=== PATIENT | female | born 1960 | race Caucasian/White ===

== ENCOUNTER 2022-12-21 14:28 | Outpatient (CLI) | payer BC | END 2022-12-21 14:29 | disposition critical access hospital (66) | LOC: EMS 14:28 | DX: R00.2 Palpitations (principal); R53.1 Weakness; R42 Dizziness and giddiness; R06.02 Shortness of breath | CPT/HCPCS: A0425; A0429 ==

== ENCOUNTER 2022-12-21 15:02 | Emergency (ER) | payer BC ==
--- NOTE | 2022-12-21 15:19 | ED Physician Documentation ---
PD HPI CHEST PAIN - Stated complaint Stated Complaint: DIZZY/PALPITATIONS - Chief complaint Chief Complaint: Cardiac - History obtained from History obtained from: Patient - Additional information Additional information: 62-year-old woman with history of hypertension, she is on lisinopril/hydrochlorothiazide 20/25 chronically long-term and she was on verapamil twice daily but about 2 months ago she switched her verapamil to daily because she was having some lower blood pressures. About a month ago she had an episode of palpitations. It resolved on its own and she follow-up with her men's and boys' clothing salesperson, Dr. Zacarias in [place], where she lives and she was recommended to get a cardia unit. Today while at rest she had about 20 to 30 minutes episodes of rapid palpitations and lightheadedness. There is no associated chest pain. Resolved prior to EMS arrival and she feels fine now. PD PAST MEDICAL HISTORY - Present Medications Home Medications: Ambulatory Orders Medication Instructions Recorded Confirmed Escitalopram [Lexapro] 10 mg PO DAILY 12/21/22 12/21/22 Ezetimibe [Zetia] 10 mg PO QD 12/21/22 12/21/22 Gabapentin [Neurontin] 1,200 mg PO HS 12/21/22 12/21/22 Letrozole 10 mg PO DAILY 12/21/22 12/21/22 Levothyroxine [Synthroid] 125 mcg PO QDAC 12/21/22 12/21/22 Liothyronine [Cytomel] 5 mcg PO QDAC 12/21/22 12/21/22 Lisinopril/Hydrochlorothiazide 1 each PO DAILY #90 tablet 12/21/22 [Zestoretic 10-12.5 mg Tablet] Lisinopril/Hydrochlorothiazide 1 each PO DAILY 12/21/22 12/21/22 [Zestoretic 20-25 mg Tablet] Ursodiol [Jessica] 1,000 mg PO DAILY 12/21/22 12/21/22 Verapamil ER [Calan SA] 120 mg PO DAILY 12/21/22 12/21/22 - Allergies Allergies/Adverse Reactions: Allergies Allergy/AdvReac Type Severity Reaction Status Date / Time adhesive Allergy Hives Verified 12/21/22 15:26 clindamycin Allergy Unknown Verified 12/21/22 15:26 hydrocodone Allergy Unknown Verified 12/21/22 15:26 Penicillins Allergy Anaphylaxis Verified 12/21/22 15:26 tramadol Allergy Unknown Verified 12/21/22 15:26 PD ED PE NORMAL - Vitals Vital signs reviewed: Yes - General General: Alert and oriented X 3, No acute distress - Cardiac Cardiac: RRR, No murmur - Respiratory Respiratory: No respiratory distress, Clear bilaterally - Abdomen Abdomen: Non tender - Extremities Extremities: No edema, No calf tenderness / cord - Neuro Neuro: Alert and oriented X 3, Normal speech Results - Vitals Vitals: Vital Signs - 24 hr 12/21/22 12/21/22 12/21/22 15:12 16:02 17:01 Temperature 37.1 C Heart Rate 77 68 62 Respiratory 14 19 23 Rate Blood Pressure 156/78 H 136/86 H 132/78 H O2 Saturation 98 99 97 Oxygen O2 Source Room air - EKG (time done) 1509 EKG releavant findings:: EKG personally interpreted by author of this note. Relevant findings are: Rate: Rate (enter#) (84) Rhythm: NSR Cow[place]: Normal Intervals: Normal MD QRS: Normal Ischemia: Normal ST segments - Labs Labs: Laboratory Tests 12/21/22 12/21/22 15:26 15:26 WBC 5.5 RBC 4.77 Hgb 14.5 Hct 43.0 MCV 90.1 MCH 30.4 MCHC 33.7 RDW 12.6 Plt Count 249 MPV 8.9 Neut # (Auto) 3.0 Lymph # (Auto) 1.8 [place] # (Auto) 0.5 Eos # (Auto) 0.2 Baso # (Auto) 0.0 Absolute Nucleated RBC 0.00 Nucleated RBC % 0.0 Sodium 139 Potassium 3.6 Chloride 104 Carbon Dioxide 28 Anion Gap 7.0 BUN 14 Creatinine 0.6 Estimated GFR (MDRD) 101 Glucose 76 Calcium 10.1 Magnesium 1.8 TSH 0.14 L Free T4 Direct 1.25 Free T3 pg/mL 3.66 PD Medical Decision Making - ED course ED course: She is able to show me the tracing from her Kardia unit from earlier in the day which shows a narrow complex rapid SVT with a rate a little over 200. 61-year-old woman with a resolved SVT based on her Kardia device. CBC and BMP unremarkable. TSH low but free T4 and T3 unremarkable. Symptoms likely unmasked by going to half of her prior dose of verapamil a couple of months ago. She was on 120 mg twice a day, and couple of months ago when 220 mg once a day because of some low blood pressures. She is also on lisinopril/HCTZ 20/25 daily. I did discuss her case by phone with Dr. Ezekiel Gates, men's and boys' clothing salesperson in [facility] who agreed that she should probably go back to the twice a day dosing of verapamil and we will half the dose of her other antihypertensive. Departure - Departure Disposition: 01 Home, Self Care Clinical Impression: SVT (supraventricular tachycardia) Condition: Good Record reviewed to determine appropriate education?: Yes Instructions: ED Tachycardia Pat PSVT Prescriptions: Lisinopril/Hydrochlorothiazide [Zestoretic 10-12.5 mg Tablet] 1 each PO DAILY #90 tablet Comments: Go back to the twice a day dosing of verapamil starting tomorrow. I sent the prescription for the half dose of lisinopril/HCTZ to the [facility] in [place]. Return if worse. Follow-up with your men's and boys' clothing salesperson on return home. Forms: PCP List
[2022-12-21 15:31] LABS: BASOPHILS % (AUTO) 0.5 %; EOSINOPHILS # (AUTO) 0.2 10^3/uL (0.0-0.7); EOSINOPHILS % (AUTO) 2.7 %; HGB - HEMOGLOBIN 14.5 g/dL (12.0-16.0); LYMPHOCYTES # (AUTO) 1.8 10^3/uL (1.5-3.5); LYMPHOCYTES % (AUTO) 33.2 %; MEAN CORPUSCULAR HEMOGLOBIN 30.4 pg (27.0-31.0); MEAN CORPUSCULAR HGB CONC 33.7 g/dL (32.0-36.0); MEAN CORPUSCULAR VOLUME 90.1 fL (81.0-99.0); MEAN PLATELET VOLUME 8.9 fL (7.9-10.8); MONOCYTES # (AUTO) 0.5 10^3/uL (0.0-1.0); MONOCYTES % (AUTO) 8.5 %; NEUTROPHILS % (AUTO) 54.7 %; PLT - PLATELET COUNT 249 10^3/uL (130-450); RED BLOOD COUNT 4.77 10^6/uL (4.20-5.40); RED CELL DISTRIBUTION WIDTH 12.6 % (12.0-15.0); WHITE BLOOD COUNT 5.5 x10^3/uL (4.8-10.8)
[2022-12-21 15:44] LABS: CALCIUM 10.1 mg/dL (8.5-10.3); CREATININE 0.6 mg/dL (0.4-1.0); MAGNESIUM 1.8 mg/dL (1.7-2.8); POTASSIUM 3.6 mmol/L (3.5-5.0)
[2022-12-21 16:05] LABS: THYROID STIMULATING HORMONE 0.14 uIU/mL (0.34-5.60)
[2022-12-21 17:08] VITALS: BP 132/78; O2SAT 97
== END 2022-12-21 17:36 | disposition home or self-care (01) ==
LOC: EDBD → ED 15:02
DX: I47.1 Supraventricular tachycardia (principal); I10 Essential (primary) hypertension
CPT/HCPCS: 36415; 80048; 83735; 84439; 84443; 84481; 85025; 93005; 99284